=== PATIENT | female | born 1970 | race African-American/Black ===

== ENCOUNTER 2025-05-03 13:24 | Emergency (ER) | payer OTHER ==
[~2025-05-03] VITALS: Ht 170.2 cm; Wt 123.0 kg
[2025-05-03 13:39] VITALS: O2SAT 95
[2025-05-03 14:47] LABS: CREATININE 1.0 mg/dL (0.6-1.0); UREA NITROGEN BLOOD 15 mg/dL (9-23)
[2025-05-03 14:49] LABS: ASPARTATE AMINOTRANSFERASE 11 IU/L (<34); TROPONIN I HIGH SENSITIVITY < 4 ng/L (3.0-34)
[2025-05-03 14:50] LABS: BILIRUBIN TOTAL 0.4 mg/dL (0.1-1.0); CREATININE 1.0 mg/dL (0.6-1.0); PROTEIN TOTAL 7.5 g/dL (6.0-8.3); UREA NITROGEN BLOOD 13 mg/dL (9-23)
[2025-05-03 14:52] LABS: ASPARTATE AMINOTRANSFERASE 10 IU/L (<34); BILIRUBIN DIRECT 0.1 mg/dL (<=3.0); BILIRUBIN TOTAL 0.4 mg/dL (0.1-1.0); PROTEIN TOTAL 7.5 g/dL (6.0-8.3)
[2025-05-03] MEDS: AMLODIPINE 5MG TABLET PO ONE (15:01)
[2025-05-03 15:40] LABS: BASOPHILS % 0.6 % (0.0-2.0); EOSINOPHILS % 1.3 % (0.0-5.0); HEMATOCRIT. 44.4 % (36.0-48.0); HEMOGLOBIN. 14.1 g/dL (12.0-16.0); LYMPHOCYTES % 39.2 % (20.0-50.0); MEAN PLATELET VOLUME 9.6 fl (7.4-10.4); MONOCYTES % 6.0 % (2.0-8.0); NEUTROPHILS % 52.9 % (40.0-76.0); PLATELET 182 x1000/uL (130-400); RED BLOOD CELL COUNT 4.87 mill/uL (4.2-5.4); RED CELL DISTRIBUTION WIDTH 13.4 % (11.6-14.6)
[2025-05-03 16:31] VITALS: BP 168/104; PULSE 70; RESP 18; TEMP 36.8; O2SAT 100
[2025-05-03 16:54] LABS: TROPONIN I HIGH SENSITIVITY < 4 ng/L (3.0-34)
== END 2025-05-03 16:40 | disposition home or self-care (01) ==
LOC: ER 13:24 → EDBEDREQ 14:01 → ER 16:40 → CMPBEDREQ 18:32
DX: I10 Essential (primary) hypertension (principal); R53.1 Weakness; R51.9 Headache, unspecified
CPT/HCPCS: 36415; 71045; 80048; 80053; 80076; 82550; 83735; 84484; 85025; 93005; 99285